=== PATIENT | male | born 1990 | race Asian ===

== ENCOUNTER 2022-05-08 19:59 | Outpatient (CLI) | payer OTHER | END 2022-05-08 20:00 | disposition home or self-care (01) | LOC: SC 19:59 | PROVIDERS: ATTEND Nurse Practitioner Family | DX: R06.83 Snoring (principal) | CPT/HCPCS: 95810 ==

== ENCOUNTER 2022-06-11 15:26 | Outpatient (CLI) | payer OTHER ==
--- NOTE | 2022-06-11 15:58 | SLEEP CARE CONSULTATION ---
Information from patient questionnaire entered by Chantel Kuo MA. I have reviewed and concur with the information entered by Chantel Kuo MA. This document represents the service I personally performed and the decisions made by Judy devlin Caren J, ARNP. History of Present Illness Service Date and Time: 06/11/2022 1526 Initial [place] Sleepiness Scale score: 9 (04/24/2022) Current [place] Sleepiness Scale score: 11 (06/11/2022) Additional HPI information: CHRISTOPHER LLOYD returns for follow up and results of the recently performed polysomnography. The patient was informed of the following findings: No significant sleep disordered breathing with an average AHI of 2.0 and [place] oxygen saturation 91%. I explained the pathophysiology behind obstructive sleep apnea. Patient does not have sleep apnea and was advised how weight gain could increase the risk of developing sleep apnea in the future. I strongly encouraged the patient to lose weight. Patient has moderate to loud snoring. Snoring can be reduced by weight loss. Weight loss is best achieved with diet consult. Patient instructed to contact PCP for referral. Snoring can also be treated with an oral appliance from a dentist. Advised to check insurance coverage. In addition, an ENT evaluation can be do to see if other treatment is indicated. Patient does not drink alcohol. Patient was cautioned about risks of drowsy driving until sleepiness symptoms resolve. Patient denies drowsy driving. Sleep Study - Results Type of Sleep Study: Polysomnography (F/U POLY, 05/08/2022 [facility], [place],) Prior sleep studies: No Polysomnography/Home Sleep Study results: IMPRESSION: The quality of the study is good. The patient had normal sleep efficiency. The sleep architecture was normal as well. Respiratory monitoring showed no significant sleep disordered breathing (AHI = 2.0) or hypoxia ([place] oxygen saturation of 91%). The patient slept adequately in supine position (supine AHI = 2.0; nonsupine = 1.99). Snore was moderate to loud in intensity. There was no significant periodic leg movement of sleep. Cardiac rhythm was normal sinus rhythm without significant arrhythmia. No abnormal behavior (parasomnia) observed during the night. Allergies and Home Medications Known drug allergies: No (nka) Drug allergies reviewed: Yes Home medication list reviewed: Yes (no changes) Allergy and home medication list: nka verified by almaz jaime 06/11/2022 1500 Review of Systems Review of systems same as previous: Yes (no changes) Physical Exam Vital signs obtained and entered by: ALMAZ JAIME Blood Pressure: 113/73 (R18 P81 RIGHT) Cuff size: wrist Heart Rate: 81 O2 Saturation: 98 (paper mask) Height: 5 ft 10 in Weight: 198 lb (uniform and boots) Weight change since last visit: losing weight - stress Body Mass Index: 28.4 BMI Classification: Overweight Impression and Plan Snoring but no significant sleep disordered breathing. Patient advised that often weight loss will reduce snoring as well as apnea risk. An oral appliance can also be used for snoring. This would require a dental consultation. Patient cautioned not to use other online appliances as can cause bite issues. A list of accredited dentists in [facility] and one local dentist who makes oral appliances is available in the office. Patient is advised to check if insurance will cover. An ENT consult can also be helpful to determine if any other treatment is an option. * Attempt to lose weight * Avoid alcohol consumption near bedtime * The patient is cautioned about driving until sleepiness is completely resolved. * Return as needed for follow up. Counseling Topics: Weight loss health impact Visit Type: In Office Time Spent with Patient (minutes): 10 Provider Statement: I spent 100% of the Face to Face Visit with the patient with greater than 50% spent counseling the patient and coordination of care.
[2022-06-11 15:59] VITALS: BP 113/73
== END 2022-06-11 15:27 | disposition home or self-care (01) ==
LOC: SC 15:26
PROVIDERS: ATTEND Nurse Practitioner Family
DX: R06.83 Snoring (principal); E66.3 Overweight; Z68.28 Body mass index [BMI] 28.0-28.9, adult
CPT/HCPCS: 99212